=== PATIENT | female | born 1975 | race Caucasian/White ===

== ENCOUNTER 2017-03-09 17:15 | Emergency (ER) | payer OTHER ==
[2017-03-09 17:22] VITALS: BP 102/69; PULSE 73; TEMP 98.2; BMI 38.2
--- NOTE | 2017-03-09 17:55 | PDOC ---
History of Present Illness - General Chief Complaint: Headache Stated Complaint: FACIAL PAIN Time Seen by Provider: 03/09/17 17:30 History Source: Patient Exam Limitations: No Limitations - History of Present Illness Initial Comments: 03/09/17 17:37 Patient is a 41-year-old female, no significant medical history. Currently on no medication. Presents to the Emergency Room for evaluation of headache localized to the left side of the head. Denies ear pain, no throat pain, no trauma, no lesions to the head. Does have photophobia, nausea last evening, states it's the worst headache of her life. No neurosensory deficits. Steady gait. Past Medical History: Denies. Allergies: No known allergies Medications: None Family History: Non-contributory Social History: Denies smoking, alcohol use, or IVDU Review of Systems GENERAL/CONSTITUTIONAL: No fever or chills. No weakness. No weight change. HEAD, EYES, EARS, NOSE AND THROAT: No change in vision. No ear pain or discharge. No sore throat. CARDIOVASCULAR: No chest pain or shortness of breath. RESPIRATORY: No cough, wheezing, or hemoptysis. GASTROINTESTINAL: No nausea, vomiting, diarrhea or constipation. No rectal bleeding. GENITOURINARY: No dysuria, frequency, or change in urination. MUSCULOSKELETAL: No joint or muscle swelling or pain. No neck or back pain. SKIN AND BREASTS: No rash or easy bruising. NEUROLOGIC: No headache, vertigo, loss of consciousness, or loss of sensation. ENDOCRINE: No increased thirst. No abnormal weight change. HEMATOLOGIC/LYMPHATIC: No anemia, easy bleeding, or history of blood clots. ALLERGIC/IMMUNOLOGIC: No hives or skin allergy. No latex allergy. Physical Exam: GENERAL: The patient is awake, alert, and fully oriented, in no acute distress. HEAD: Normal with no signs of trauma. EYES: Pupils equal, round and reactive to light, extraocular movements intact, sclera anicteric, conjunctiva clear. ENT: Ears normal, nares patent, oropharynx clear without exudates. Moist mucous membranes. No uvula deviation NECK: Normal range of motion, supple without lymphadenopathy, JVD, or masses. LUNGS: Breath sounds equal, clear to auscultation bilaterally. No wheezes, and no crackles. HEART: Regular rate and rhythm, normal S1 and S2 without murmur, rub or gallop. ABDOMEN: Soft, nontender, normoactive bowel sounds. No guarding, no rebound. No masses. No bruising or abrasions MUSCULOSKELETAL: Normal range of motion, no edema. No clubbing or cyanosis. No cords, erythema, or tenderness. No CVA Tenderness with fist. NEUROLOGICAL: Cranial nerves II through XII grossly intact. Normal speech, normal gait. PSYCH: Normal mood, normal affect. SKIN: Warm, Dry, normal turgor, no rashes or lesions noted. Past History - Past Medical History Allergies/Adverse Reactions: Allergies Allergy/AdvReac Type Severity Reaction Status Date / Time No Known Allergies Allergy Verified 03/09/17 17:18 Home Medications: Ambulatory Orders Naproxen [Naprosyn -] 500 mg PO BID #14 tablet 03/09/17 Other medical history: migraines headache - Surgical History Abdominal Surgery: Yes - Immunization History Immunization Up to Date: Yes - Psycho/Social/Smoking Cessation Hx Anxiety: No Suicidal Ideation: No Smoking History: Never smoked Have you smoked in the past 12 months: No Information on smoking cessation initiated: No Hx Alcohol Use: No Drug/Substance Use Hx: No Substance Use Type: None *Physical Exam - Vital Signs Last Vital Signs Temp Pulse Resp BP Pulse Ox 98.2 F 73 18 102/69 100 03/09/17 17:19 03/09/17 17:19 03/09/17 17:19 03/09/17 17:19 03/09/17 17:19 Medical Decision Making - Medical Decision Making 03/09/17 17:58 A/P: Patient here for evaluation of left-sided headache states the worst headache of her life. Plan: Urine , Toradol 60 mg IM times one and head CT, will reevaluate 03/09/17 19:28 CT scan of the head is negative for acute intracranial pathology. Patient states relief of headache after Toradol DC patient home on Naprosyn, follow-up with neurology if headaches persist. *DC/Admit/Observation/Transfer Diagnosis at time of Disposition: Headache Qualifiers: Headache type: tension-type Headache chronicity pattern: acute headache Intractability: not intractable Qualified Code(s): G44.209 - Tension-type headache, unspecified, not intractable - Discharge Dispostion Disposition: HOME Condition at time of disposition: Good Admit: No - Prescriptions Prescriptions: Naproxen [Naprosyn -] 500 mg PO BID #14 tablet - Referrals Referrals: Symone Hanna [Primary Care Provider] - Jean Pierre Hough MD [Staff Physician] - - Patient Instructions Printed Discharge Instructions: Tension Headache (Alternative Therapy) Additional Instructions: Please follow up in the office of neurologist for evaluation if symptoms persist. Increase fluids. - Post Discharge Activity Work/School Note: Back to Work
[2017-03-09] MEDS ORDERED: KETOROLAC TROMETHAMINE 60 MG/2 ML VIAL IM ONE (17:56)
[2017-03-09] MEDS ORDERED: KETOROLAC TROMETHAMINE 60 MG/2 ML VIAL ONE (18:03)
== END 2017-03-09 19:51 | disposition home or self-care (01) ==
LOC: JERFT 17:15
PROC: 3E0233Z Introduction of Anti-inflammatory into Muscle, Percutaneous Approach (ICD-10-PCS; principal; 2017-03-09)
DX: G44.209 Tension-type headache, unspecified, not intractable (principal)
CPT/HCPCS: 70450-TC; 84703; 96372; 99281-25

== ENCOUNTER 2018-01-03 19:45 | Emergency (ER) | payer OTHER ==
[2018-01-03 19:57] VITALS: BP 129/76; PULSE 90; TEMP 98.2; BMI 36.6
[2018-01-03] MEDS ORDERED: SODIUM CHLORIDE 1,000 ML IV STA ×2 (20:06→22:21)
--- NOTE | 2018-01-03 20:33 | PDOC ---
History of Present Illness - General Chief Complaint: CVA/TIA Stated Complaint: NUMBNESS Time Seen by Provider: 01/03/18 19:55 - History of Present Illness Initial Comments: 01/03/18 20:32 Ms. Sandoval is a 42 yo female w/ pmh of migraines who presents for evaluation of 2 hour history of right arm and face tingling and numbness. Patient reports it started at her eye spread across the right side of her face. She most recently had a CT Head in february and sees a Neurologist for evaluation of her migraines. The patient denies chest pain, shortness of breath, headache and dizziness. Denies fever, chills, nausea, vomit, diarrhea and constipation. Denies dysuria, frequency, urgency and hematuria. Allergies: NKDA NIH Stroke Scale - Last Known Well Date/Time & Onset Date Last Known Well: 01/03/18 Time Last Known Well: 18:45 - Initial Evaluation Level of consciousness: Alert Ask patient the month and their age: Answers both correctly Ask patient to open & close eyes; make fist and let go: Obeys both correctly Best gaze (horizontal eye movement): Normal Visual field testing: No visual field loss Facial paresis (Show teeth/raise eyebrows/close eyes tight): Normal symmetrical movement Motor Function: Left Arm: Normal Motor Function: Right Arm: Normal (extends arm 90 (or 45) degrees for 10 seconds without drift Motor Function: Left Leg: Normal (extends leg 30 degrees for 5 seconds without drift) Motor Function: Right Leg: Normal (extends leg 30 degrees for 5 seconds without drift) Limb Ataxia: No ataxia Sensory(Use pinprick test arms,legs,trunk,face/side to side): Mild to moderate decrease in sensation Best language (Describe picture, name items, read sentences): No Aphasia Dysarthria (read several words): Normal articulation Extinction and Inattention: No abnormality - Total Score NIH Stroke Scale Score: 1 Past History - Past Medical History Allergies/Adverse Reactions: Allergies Allergy/AdvReac Type Severity Reaction Status Date / Time No Known Allergies Allergy Verified 05/25/17 19:41 Home Medications: Ambulatory Orders NK [No Known Home Medication] 05/25/17 COPD: No DVT: No Other medical history: obesity - Surgical History Abdominal Surgery: Yes - Immunization History Immunization Up to Date: Yes - Suicide/Smoking/Psychosocial Hx Smoking History: Never smoked Have you smoked in the past 12 months: No Information on smoking cessation initiated: No Hx Alcohol Use: No Drug/Substance Use Hx: No Substance Use Type: None Review of Systems - Review of Systems Comments:: 01/03/18 20:41 GENERAL/CONSTITUTIONAL: No fever or chills. No weakness. HEAD, EYES, EARS, NOSE AND THROAT: +Right sided facial tingling. No change in vision. No ear pain or discharge. No sore throat. CARDIOVASCULAR: No chest pain or shortness of breath RESPIRATORY: No cough, wheezing, or hemoptysis. GASTROINTESTINAL: No nausea, vomiting, diarrhea or constipation. GENITOURINARY: No dysuria, frequency, or change in urination. MUSCULOSKELETAL: +Right arm tingling. No joint or muscle swelling or pain. No neck or back pain. SKIN: No rash NEUROLOGIC: No headache, vertigo, loss of consciousness, or change in strength/ sensation. ENDOCRINE: No increased thirst. No abnormal weight change HEMATOLOGIC/LYMPHATIC: No anemia, easy bleeding, or history of blood clots. ALLERGIC/IMMUNOLOGIC: No hives or skin allergy. *Physical Exam - Vital Signs Last Vital Signs Temp Pulse Resp BP Pulse Ox 98.2 F 90 20 129/76 96 01/03/18 19:53 01/03/18 19:53 01/03/18 19:53 01/03/18 19:53 01/03/18 19:53 - Physical Exam Comments: 01/03/18 20:41 GENERAL: Awake, alert, and fully oriented, in no acute distress HEAD: No signs of trauma, normocephalic, atraumatic EYES: +Right eye injected and tearful at this time. PERRLA, EOMI ENT: Auricles normal inspection, hearing grossly normal, nares patent, oropharynx clear without exudates. Moist mucosa NECK: Normal ROM, supple, no lymphadenopathy, JVD, or masses LUNGS: No distress, speaks full sentences, clear to auscultation bilaterally HEART: Regular rate and rhythm, normal S1 and S2, no murmurs, rubs or gallops, peripheral pulses normal and equal bilaterally. ABDOMEN: Soft, nontender, normoactive bowel sounds. No guarding, no rebound. No masses EXTREMITIES: Normal inspection, Normal range of motion, no edema. No clubbing or cyanosis. NEUROLOGICAL: Cranial nerves II through XII grossly intact. Normal speech, normal gait, no focal sensorimotor deficits SKIN: Warm, Dry, normal turgor, no rashes or lesions noted. ED Treatment Course - LABORATORY CBC & Chemistry Diagram: 01/03/18 20:26 01/03/18 20:26 Medical Decision Making - Medical Decision Making 01/03/18 20:44 Ms. Sandoval is a 42 yo female w/ pmh of migraines who presents w/ symptoms concerning for acute migraine. Patient NIHSS 1, no concern for CVA at this time. Treatment started for evaluation of complex migraine w/ fluids, IV reglan , and labs as below. 01/03/18 21:53 Patient reporting improvement with above treatment. 01/03/18 22:34 Discussed patient w/ Neurology as symptoms have not fully resolved. Neurology recommended testing ESR with decadron 10 and valproic acid 500 as well as head CTA for further evaluation. Will comply. 01/03/18 23:54 Head CTA negative. Discharging to home. Patient will follow-up outpatient with Neurology. *DC/Admit/Observation/Transfer Diagnosis at time of Disposition: Migraine Qualifiers: Migraine type: unspecified Status migrainosus presence: without status migrainosus Intractability: not intractable Qualified Code(s): G43.909 - Migraine, unspecified, not intractable, without status migrainosus - Discharge Dispostion Disposition: HOME - Referrals Referrals: Symone Hanna [Primary Care Provider] - - Patient Instructions Printed Discharge Instructions: DI for Migraine Additional Instructions: Please follow-up with Neurology as discussed. Return to ER if any return of headache, fever, chills, altered mental status, or other concerning symptoms. - Post Discharge Activity
[2018-01-03] MEDS ORDERED: METOCLOPRAMIDE HCL INJECTION 10 MG/2 ML VIAL IVPB ONE (20:38)
[2018-01-03] MEDS ORDERED: METOCLOPRAMIDE HCL INJECTION 10 MG/2 ML VIAL ONE (20:47)
--- NOTE | 2018-01-03 20:50 | PDOC ---
Attending Attestation - Medical Decision Making 01/04/18 00:03 EXAM: BRAIN CTA FINDINGS: The right and left anterior, middle and posterior cerebral arteries are normal without clot, occlusion, high-grade stenosis or discrete aneurysm formation. The distal vertebrobasilar system is normal with a slightly dominant left vertebral artery. The distal right and left internal carotid arteries are normal. There are no areas of abnormally increased or decreased enhancement IMPRESSION: No evidence of vascular pathology in the brain. THIS DOCUMENT HAS BEEN ELECTRONICALLY SIGNED Matthew Horton MD Documentation prepared by Serene Osorio, acting as medical assistant ob gyn for Nidia Avendano MD. <Serene Osorio - Last Filed: 01/04/18 00:03> - Resident Resident Name: Atilio Corey - ED Attending Attestation I have performed the following: I have examined & evaluated the patient, The case was reviewed & discussed with the resident, I agree w/resident's findings & plan, Exceptions are as noted - HPI HPI: 01/03/18 20:48 42 yo female p/e rt sided facial "pins and needles" sensation -she has a history of migraines and is followed by [facility] -usually she gets photophobia and her pain is usually left sided - Physicial Exam PE: 01/03/18 20:50 42 yo female p/w complaint of rt sided facial numbness head ncat eyes rosaura eomi neck supple lungs cta b/l cvs [id number] abd nontender extremities no edema,no deformities skin warm and sry,no vescicles 01/03/18 22:27 - Medical Decision Making 01/03/18 22:54 Spoke with Neurology, Dr Thomas who requested pt receive Valproic acid,decadron and CTA of the head 01/04/18 00:33 CT of the head is negative I reviewed the CTA head and lab work results with a air sampling and monitoring and it became evident that the patient already has an appointment with Dr. Thomas this for history of numbness in her hands <Nidia Avendano - Last Filed: 01/04/18 00:35>
[2018-01-03 20:51] LABS: BASO % 0.6 % (0-2.0); EOS % 1.7 % (0-4.5); HEMATOCRIT 37.7 % (32.4-45.2); LYMPH % 27.1 % (8-40); MCH 27.6 pg (25.7-33.7); MCHC 34.4 g/dl (32.0-36.0); MEAN CELL VOLUME 80.3 fl (80-96); MEAN PLT VOLUME 8.3 fl (7.5-11.1); MONO % 8.6 % (3.8-10.2); PLATELET COUNT 242 K/MM3 (134-434); RDW 13.7 % (11.6-15.6); WHITE BLOOD COUNT 5.7 K/mm3 (4.0-10.0)
[2018-01-03 20:57] LABS: URINE APPEARANCE CLEAR; URINE BILIRUBIN NEGATIVE (<2.0 mg/dL); URINE COLOR LTYELLOW; URINE GLUCOSE (UA) NEGATIVE (NEGATIVE); URINE KETONE NEGATIVE (NEGATIVE); URINE LEUK ESTERASE NEGATIVE (NEGATIVE); URINE NITRITE NEGATIVE (NEGATIVE); URINE PROTEIN NEGATIVE (NEGATIVE)
[2018-01-03 20:59] LABS: HCG,QUALITATIVE URINE NEGATIVE
[2018-01-03 21:21] LABS: ALK PHOS 86 U/L (45-117); ANION GAP 9 (8-16); BILIRUBIN,TOTAL 0.5 mg/dL (0.2-1.0); BLOOD UREA NITROGEN 9 mg/dL (7-18); CALCIUM 9.1 mg/dL (8.5-10.1); CHLORIDE 105 mmol/L (98-107); CO2 26 mmol/L (21-32); GLUCOSE,RANDOM 100 mg/dL (74-106); POTASSIUM 4.1 mmol/L (3.5-5.1); SGOT/AST 27 U/L (15-37); SGPT/ALT 36 U/L (12-78); SODIUM 140 mmol/L (136-145); TOT PROT 7.3 g/dl (6.4-8.2)
[2018-01-03] MEDS ORDERED: ACETAMINOPHEN 1000 MG/100 ML VIAL (NON FORMULARY) IVPB ONE (21:58)
[2018-01-03] MEDS ORDERED: VALPROIC ACID 250 MG CAPSULE PO ONE (22:17)
[2018-01-03] MEDS ORDERED: ACETAMINOPHEN INJECTION 100 ML IVPB ONE (22:23)
[2018-01-03] MEDS ORDERED: DEXAMETHASONE 4 MG TABLET (FP) PO ONE (22:30)
[2018-01-03] MEDS ORDERED: DEXAMETHASONE SOD PHOSPHATE 10 MG/1 ML VIAL IVPUSH ONE (22:33)
[2018-01-03] MEDS ORDERED: DEXAMETHASONE SOD PHOSPHATE 10 MG/1 ML VIAL ONE (22:33)
[2018-01-03] MEDS ORDERED: DIVALPROEX SODIUM 500 MG TABLET E.C. ONE (22:33)
--- NOTE | 2018-01-04 13:59 | EKG ---
Test Reason : Blood Pressure : / mmHG Vent. Rate : 088 BPM Atrial Rate : 088 BPM P-R Int : 172 ms QRS Dur : 066 ms QT Int : 372 ms P-R-T Axes : 052 037 014 degrees QTc Int : 450 ms NORMAL SINUS RHYTHM POSSIBLE LEFT ATRIAL ENLARGEMENT LOW VOLTAGE QRS BORDERLINE ECG WHEN COMPARED WITH ECG OF 06-JUN-2015 13:51, QT HAS LENGTHENED Confirmed by KINDRA DEAL MD ([id number]) on 01/04/2018 1:58:53 PM Referred By: Confirmed By:KINDRA DEAL MD
== END 2018-01-04 00:44 | disposition home or self-care (01) ==
LOC: JER 19:45
PROC: 3E0337Z Introduction of Electrolytic and Water Balance Substance into Peripheral Vein, Percutaneous Approach (ICD-10-PCS; principal; 2018-01-03)
PROC: 3E033GC Introduction of Other Therapeutic Substance into Peripheral Vein, Percutaneous Approach (ICD-10-PCS; 2018-01-03)
PROC: 3E033GC Introduction of Other Therapeutic Substance into Peripheral Vein, Percutaneous Approach (ICD-10-PCS; 2018-01-03)
PROC: 3E033NZ Introduction of Analgesics, Hypnotics, Sedatives into Peripheral Vein, Percutaneous Approach (ICD-10-PCS; 2018-01-03)
DX: G43.909 Migraine, unspecified, not intractable, without status migrainosus (principal)
CPT/HCPCS: 36415; 70496-TC; 80053; 81003; 82550; 82553; 84484; 84703; 85025; 85651; 86618; 87086; 93005; 93010; 96361; 96374; 96375; 99282-25; J0131; J1100; J7030

== ENCOUNTER 2018-04-03 17:56 | Emergency (ER) | payer OTHER ==
[2018-04-03 18:05] VITALS: BP 141/83; PULSE 95; TEMP 98; BMI 39.6
--- NOTE | 2018-04-03 18:23 | PDOC ---
History of Present Illness - General Chief Complaint: Injury Stated Complaint: FALL, NECK AND SHOULDER PAIN Time Seen by Provider: 04/03/18 18:17 - History of Present Illness Initial Comments: 42-year-old female without comorbidities presents for evaluation of right shoulder pain after a fall 2 nights ago at home. She states she lost her balance trip fell onto her right shoulder. Since that time she's been having increasing pain in the right shoulder. 04/03/18 18:21 Past History - Past Medical History Allergies/Adverse Reactions: Allergies Allergy/AdvReac Type Severity Reaction Status Date / Time No Known Allergies Allergy Verified 04/03/18 18:05 Home Medications: Ambulatory Orders NK [No Known Home Medication] 05/25/17 COPD: No DVT: No - Surgical History Abdominal Surgery: Yes - Immunization History Immunization Up to Date: Yes - Suicide/Smoking/Psychosocial Hx Smoking History: Never smoked Have you smoked in the past 12 months: No Hx Alcohol Use: No Drug/Substance Use Hx: No Substance Use Type: None Review of Systems - Review of Systems Musculoskeletal: Yes: See HPI, Joint Pain All Other Systems: Reviewed and Negative *Physical Exam - Vital Signs Last Vital Signs Temp Pulse Resp BP Pulse Ox 98 F 95 H 18 141/83 99 04/03/18 18:02 04/03/18 18:02 04/03/18 18:02 04/03/18 18:02 04/03/18 18:02 - Physical Exam Comments: 04/03/18 18:22 Right shoulder skin color and temperature are normal range of motion is decreased she has mild tenderness over the proximal humerus she is unable to tolerate rotator cuff strength testing she has positive impingement maneuvers negative Spurling maneuver upper extremity compartments are soft and nontender she has no gross sensorimotor deficits she is neurovascularly intact. ED Treatment Course - RADIOLOGY Radiology Studies Ordered: Category Date Time Status SHOULDER-RIGHT [RAD] Stat Radiology 04/03/18 18:21 Ordered Medical Decision Making - Medical Decision Making X-rays of the right shoulder show no evidence of fracture trauma or distractive process this is a shoulder contusion with possibly an underlying rotator cuff injury I'll have her follow-up with orthopedic surgery. 04/03/18 18:57 *DC/Admit/Observation/Transfer Diagnosis at time of Disposition: Shoulder contusion - Discharge Dispostion Disposition: HOME Condition at time of disposition: Stable Decision to Admit order: No - Referrals Referrals: Lori Owens MD [Primary Care Provider] - Connor Wiseman MD [Staff Physician] - - Patient Instructions Printed Discharge Instructions: Contusion Additional Instructions: Return to the emergency room should symptoms worsen or go unresolved. May take Tylenol and Motrin for pain as directed. Follow-up with orthopedic surgery in 2- 3 days for further evaluation and treatment options. - Post Discharge Activity
== END 2018-04-03 19:30 | disposition home or self-care (01) ==
LOC: JERFT 17:56
DX: S40.011A Contusion of right shoulder, initial encounter (principal); W18.39XA Other fall on same level, initial encounter; Y93.89 Activity, other specified; Y92.038 Other place in apartment as the place of occurrence of the external cause; Y99.8 Other external cause status
CPT/HCPCS: 73030-TC-RT-FY; 99281-25

== ENCOUNTER 2019-02-07 14:11 | Emergency (ER) | payer OTHER ==
--- NOTE | 2019-02-07 14:24 | PDOC ---
Rapid Medical Evaluation Time Seen by Provider: 02/07/19 14:23 Medical Evaluation: Allergies Allergy/AdvReac Type Severity Reaction Status Date / Time No Known Allergies Allergy Verified 04/03/18 18:05 02/07/19 14:23 I have performed a brief in-person evaluation of this patient. The patient presents with a chief complaint of: diffuse chest pain x1 month Pertinent physical exam findings: no focal findings I have ordered the following: cardiac w/u The patient will proceed to the ED for further evaluation. Discharge Disposition - Diagnosis Chest pain - Referrals - Patient Instructions - Post Discharge Activity
[2019-02-07 14:31] VITALS: BP 124/68; PULSE 86; TEMP 98.5; BMI 39.1
[2019-02-07] MEDS ORDERED: IBUPROFEN 600 MG TABLET (FP) PO ONE ×2 (14:59→15:30)
--- NOTE | 2019-02-07 15:16 | PDOC ---
History of Present Illness - General Chief Complaint: Chest Pain Stated Complaint: CHEST PAIN Time Seen by Provider: 02/07/19 14:23 History Source: Patient Exam Limitations: No Limitations - History of Present Illness Initial Comments: 02/07/19 15:05 43-year-old female who presents to ED with chest site tightness/pressure to the midsternal region for the past month intermittently worsened with movement and deep breathing. Patient states went to see her primary care doctor was given medication under her tongue and then discharged home with the same. Patient states has taken the nitroglycerin with no improvement. Patient states has not seen a communications media professor as of yet. Patient denies palpitations, dizziness, or difficulty breathing. Timing/Duration: other (1 month) Severity: mild Associated Symptoms: reports: chest pain Past History - Travel Traveled outside of the country in the last 30 days: No Close contact w/someone who was outside of country & ill: No - Past Medical History Allergies/Adverse Reactions: Allergies Allergy/AdvReac Type Severity Reaction Status Date / Time No Known Allergies Allergy Verified 02/07/19 14:31 Home Medications: Ambulatory Orders NK [No Known Home Medication] 05/25/17 COPD: No DVT: No - Surgical History Abdominal Surgery: Yes - Immunization History Immunization Up to Date: Yes - Suicide/Smoking/Psychosocial Hx Smoking History: Never smoked Have you smoked in the past 12 months: No Information on smoking cessation initiated: No Hx Alcohol Use: No Drug/Substance Use Hx: No Substance Use Type: None Patient Lives Alone: No Lives with/in: spouse/SO Review of Systems - Review of Systems Able to Perform ROS?: Yes Constitutional: No: Symptoms Reported HEENTM: No: Symptoms Reported Respiratory: No: Symptoms reported Cardiac (ROS): Yes: Chest Pain ABD/GI: No: Symptoms Reported : No: Symptoms Reported Musculoskeletal: No: Symptoms Reported Integumentary: No: Symptoms Reported Neurological: No: Symptoms reported Hematologic/Lymphatic: No: Symptoms Reported *Physical Exam - Vital Signs Last Vital Signs Temp Pulse Resp BP Pulse Ox 98.5 F 86 18 124/68 98 02/07/19 14:29 02/07/19 14:29 02/07/19 14:29 02/07/19 14:29 02/07/19 14:29 - Physical Exam General Appearance: Yes: Nourished, Appropriately Dressed. No: Apparent Distress HEENT: positive: EOMI, GODFREY, TMs Normal, Pharynx Normal. negative: Pale Conjunctivae Neck: positive: Supple Respiratory/Chest: positive: Chest Tender (upper midsternal), Lungs Clear, Normal Breath Sounds. negative: Respiratory Distress, Accessory Muscle Use Cardiovascular: positive: Regular Rhythm, Regular Rate. negative: Murmur Gastrointestinal/Abdominal: positive: Soft. negative: Tenderness Integumentary: positive: Normal Color, Warm, Moist Neurologic: positive: Motor Strength 5/5 (ambulatory) Heart Score/ECG Review - ECG Intrepretation Rhythm: Regular Rhythm (Rate 72.) ED Treatment Course - LABORATORY CBC & Chemistry Diagram: 02/07/19 15:08 02/07/19 15:08 Medical Decision Making - Medical Decision Making 02/07/19 16:24 chief complaint: Intermittent upper bilateral chest pain for the past month. Patient states unable to open a communications media professor so came to the ER. Patient was seen by her PCP given nitroglycerin which she states has not alleviated her symptoms Exam: Reproducible upper chest pain near the first and second rib bilaterally medial of the midclavicular line Plan: Labs, urine, chest x-ray, EKG and Toradol ordered 02/07/19 17:25 Laboratory Tests 02/07/19 02/07/19 02/07/19 15:08 15:08 15:08 WBC 4.5 Hgb 12.6 Hct 35.8 Neutrophils % 61.7 PT with INR INR Sodium 141 Potassium 4.1 Chloride 108 H Carbon Dioxide 25 Anion Gap 7 L BUN 9.3 Est GFR (CKD-EPI)NonAf 69.43 Random Glucose 96 Calcium 9.0 Magnesium 2.2 Total Bilirubin 0.7 AST 22 ALT 29 Alkaline Phosphatase 85 Creatine Kinase 211 H Creatine Kinase Index 1.4 CK-MB (CK-2) 3.0 Troponin I < 0.02 Total Protein 7.3 Albumin 4.0 Urine Ketones Ur Leukocyte Esterase Urine WBC (Auto) Urine HCG, Qual 02/07/19 02/07/19 02/07/19 15:08 15:08 15:08 WBC Hgb Hct Neutrophils % PT with INR 12.20 INR 1.03 Sodium Potassium Chloride Carbon Dioxide Anion Gap BUN Est GFR (CKD-EPI)NonAf Random Glucose Calcium Magnesium Total Bilirubin AST ALT Alkaline Phosphatase Creatine Kinase Creatine Kinase Index CK-MB (CK-2) Troponin I Total Protein Albumin Urine Ketones Trace H Ur Leukocyte Esterase 1+ H Urine WBC (Auto) 6 Urine HCG, Qual Negative Exam negative for acute pathology. Patient states feeling better. Patient be discharged home with recommendations to take Motrin 600 mg as needed for discomfort and follow-up with referred communications media professor given to her by her PCP at [address] [place] [address]. *DC/Admit/Observation/Transfer Diagnosis at time of Disposition: Chest pain, musculoskeletal - Discharge Dispostion Disposition: HOME Condition at time of disposition: Improved - Referrals - Patient Instructions Printed Discharge Instructions: DI for Musculoskeletal Pain Additional Instructions: Please take Motrin 600 mg every 8 hours for discomfort. Follow-up with the communications media professor you were given by your PCP - Post Discharge Activity
[2019-02-07 16:05] LABS: BILIRUBIN,TOTAL 0.7 mg/dL (0.2-1); BLOOD UREA NITROGEN 9.3 mg/dL (7-18); MAGNESIUM 2.2 mg/dL (1.8-2.4); POTASSIUM 4.1 mmol/L (3.5-5.1); TOT PROT 7.3 g/dl (6.4-8.2)
[2019-02-07 16:13] LABS: BASO % 0.2 % (0-2.0); HEMATOCRIT 35.8 % (32.4-45.2); HEMOGLOBIN 12.6 GM/dL (10.7-15.3); INR 1.03 (0.83-1.09); LYMPH % 26.2 % (8-40); MCH 28.1 pg (25.7-33.7); MCHC 35.1 g/dl (32.0-36.0); MEAN PLT VOLUME 8.2 fl (7.5-11.1); MONO % 10.9 % (3.8-10.2); NEUT % 61.7 % (42.8-82.8); PLATELET COUNT 227 K/MM3 (134-434); PROTHROMBIN TIME (PATIENT) 12.2 SEC (9.7-13.0); RBC 4.48 M/mm3 (3.60-5.2); RDW 13.6 % (11.6-15.6); WHITE BLOOD COUNT 4.5 K/mm3 (4.0-10.0)
[2019-02-07 16:36] LABS: EPI CELLS 3.1 /HPF (0-5/HPF); HYALINE CASTS 1 /lpf (0-8); PH,URINE 5.5 (5.0-8.0); URINE APPEARANCE CLEAR; URINE BACTERIA 239.3 /hpf (NEGATIVE); URINE BILIRUBIN NEGATIVE (NEGATIVE); URINE COLOR YELLOW; URINE GLUCOSE (UA) NEGATIVE (NEGATIVE); URINE KETONE TRACE (NEGATIVE); URINE LEUK ESTERASE 1+ (NEGATIVE); URINE NITRITE NEGATIVE (NEGATIVE); URINE PROTEIN NEGATIVE (NEGATIVE); URINE RBC 1 /hpf (0-4); URINE WBC 6 /hpf (0-5)
--- NOTE | 2019-02-08 13:42 | EKG ---
Test Reason : Blood Pressure : / mmHG Vent. Rate : 093 BPM Atrial Rate : 093 BPM P-R Int : 152 ms QRS Dur : 062 ms QT Int : 344 ms P-R-T Axes : 057 047 029 degrees QTc Int : 427 ms NORMAL SINUS RHYTHM NORMAL ECG WHEN COMPARED WITH ECG OF 03-JAN-2018 20:49, NO SIGNIFICANT CHANGE WAS FOUND Confirmed by Moncho Chowdhury MD ([id number]) on 02/08/2019 1:41:34 PM Referred By: Confirmed By:Moncho Chowdhury MD
== END 2019-02-07 17:41 | disposition home or self-care (01) ==
LOC: JER 14:11
DX: R07.89 Other chest pain (principal)
CPT/HCPCS: 36415; 71046-TC-FY; 80053; 81003; 82550; 82553; 83735; 84484; 84703; 85025; 85610; 93005; 93010; 99282-25

== ENCOUNTER 2020-04-10 09:19 | Emergency (ER) | payer OTHER ==
[2020-04-10 09:36] VITALS: BP 110/68; PULSE 70; TEMP 98.6; BMI 38.9
[2020-04-10] MEDS ORDERED: IBUPROFEN 600 MG TABLET (FP) PO ONE ×2 (10:00→10:04)
[2020-04-10] MEDS ORDERED: CEPHALEXIN MONOHYDRATE 500 MG CAPSULE (UD) PO ONE (10:00)
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
[2020-04-10] MEDS ORDERED: CEPHALEXIN MONOHYDRATE 500 MG CAPSULE (UD) ONE (10:05)
--- NOTE | 2020-04-10 10:09 | PDOC ---
History of Present Illness - General Chief Complaint: Injury Stated Complaint: LT. FOOT SWELLING Time Seen by Provider: 04/10/20 09:41 History Source: Patient Exam Limitations: No Limitations - History of Present Illness Initial Comments: 04/10/20 10:03 Patient is a 44-year-old female who presents to the ED with complaint of left ankle and foot swelling 2 days ago. She states she went walking on Thursday and then noticed that her foot began to swell. She denies any fevers or chills. She has tried using ice, heat, IcyHot without any relief. She states the pain increases with walking. She denies any numbness or tingling. She denies any injury to the foot or ankle. The patient denies any past medical history or allergies to medications. Past History - Medical History Allergies/Adverse Reactions: Allergies Allergy/AdvReac Type Severity Reaction Status Date / Time No Known Allergies Allergy Verified 04/10/20 09:34 Home Medications: Ambulatory Orders Cephalexin [Keflex] 500 mg PO TID 7 Days #21 capsule 04/10/20 COPD: No DVT: No - Surgical History Abdominal Surgery: Yes - Reproductive History Is Patient Now?: No - Immunization History Immunization Up to Date: Yes - Psycho-Social/Smoking History Smoking History: Never smoked Have you smoked in the past 12 months: No - Substance Abuse Hx (Audit-C & DAST Scrn) How often the patient has a drink containing alcohol: Never Score: In Men: 4 or > Positive; In Women: 3 or > Positive: 0 Screen Result (Pos requires Nsg. Audit-10AR): Negative In the last yr the pt used illegal drug/Rx for NonMed reason: No Score: Yes response is considered Positive: 0 Screen Result (Positive result requires Nsg. DAST-10): Negative Review of Systems - Review of Systems Comments:: 04/10/20 10:04 - Review of Systems Able to Perform ROS?: Yes Constitutional: No: Fever, Chills, Loss of Appetite, Night Sweats, Weakness HEENTM: No: Eye Pain, Vision changes, Ear Pain, Throat Pain, Throat Swelling, Mouth Pain, Difficulty Swallowing Respiratory: No: Cough, Shortness of Breath, Wheezing, Sputum Production Cardiac (ROS): No: Chest Pain, Chest Tightness, Palpitations, Irregular Heart Beat, Edema ABD/GI: No: Nausea, Vomiting, Abdominal Pain, Diarrhea Musculoskeletal: No: Muscle Pain, Back Pain, Joint Pain, Muscle Weakness, Neck Pain; positive: Left foot and ankle swelling Integumentary: No: Lesions, Rash Neurological: No: Headache, Numbness, Tingling, Weakness, Speech Difficulties *Physical Exam - Vital Signs Last Vital Signs Temp Pulse Resp BP Pulse Ox 98.6 F 70 18 110/68 100 04/10/20 09:34 04/10/20 09:34 04/10/20 09:34 04/10/20 09:34 04/10/20 09:34 - Physical Exam 04/10/20 10:05 - Physical Exam General Appearance: Nourished, Appropriately Dressed, No Distress HEENT: EOMI, Normal Voice, Hearing Grossly Normal Neck: Supple, No Lymphadenopathy (R), No Lymphadenopathy (L), No Rigidity, No Decreased range of motion Respiratory/Chest: Lungs Clear, Normal Breath Sounds. No Respiratory Distress, No Accessory Muscle Use Cardiovascular: Regular Rhythm, Regular Rate, S1, S2 Musculoskeletal: Normal Inspection. No Decreased Range of Motion; left dorsal foot erythema appreciated with mild warmth to touch. Lateral ankle swelling with some anterior tenderness appreciated. No crepitus. DP and PT pulses 2+. Patient able to move all toes freely. Brisk capillary refill distally. Extremity: Normal Capillary Refill, Normal Inspection Integumentary: Normal Color, Dry. 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 Plan: -We will treat the patient for a left foot cellulitis, first dose of Keflex giv en in the ED -Left foot and ankle x-rays negative for acute pathology -We will discharge the patient with a prescription for Keflex and have her follow-up with orthopedics for further evaluation and treatment. She understands and agrees with this treatment plan and she is stable for discharge. Discharge - Discharge Information Problems reviewed: Yes Clinical Impression/Diagnosis: Cellulitis of left foot Condition: Stable Disposition: HOME - Additional Discharge Information Prescriptions: Cephalexin [Keflex] 500 mg PO TID 7 Days #21 capsule - Follow up/Referral Referrals: Lori Owens MD [Primary Care Provider] - 24 hours - Patient Discharge Instructions Patient Printed Discharge Instructions: DI for Cellulitis -- Adult Additional Instructions: Take the antibiotics as prescribed and complete the entire course. You were given your first dose in the emergency department today so take the next dose in 8 hours. Be sure to complete the entire course of antibiotics even if you are feeling better. Follow-up with your primary doctor within 1 to 2 days for repeat evaluation. Return to the emergency department for increased swelling, increased redness, increased pain, high fevers, shaking chills or any other worsening symptoms. - Post Discharge Activity Work/Back to School Note: Back to Work
== END 2020-04-10 10:14 | disposition home or self-care (01) ==
LOC: JERFT 09:19
DX: L03.116 Cellulitis of left lower limb (principal)
CPT/HCPCS: 73610-TC-LT-FY; 73630-TC-LT; 99283-25

== ENCOUNTER 2021-11-07 04:38 | Day surgery (SDC) | payer OTHER ==
[2021-11-06 09:48] VITALS: BMI 41.2
[2021-11-07 11:33] VITALS: BP 105/55; PULSE 70; TEMP 98
== END 2021-11-07 11:53 | disposition home or self-care (01) ==
LOC: JASU-ENDO 04:38
PROVIDERS: ATTEND Internal Medicine Gastroenterology
PROC: 0DJD8ZZ Inspection of Lower Intestinal Tract, Via Natural or Artificial Opening Endoscopic (ICD-10-PCS; principal; 2021-11-07 10:15)
DX: Z12.11 Encounter for screening for malignant neoplasm of colon (principal); K59.00 Constipation, unspecified; Z80.0 Family history of malignant neoplasm of digestive organs
CPT/HCPCS: 81025

== ENCOUNTER 2022-10-20 07:50 | Emergency (ER) | payer OTHER ==
[2022-10-20 08:11] VITALS: BP 119/79; RESP 20; TEMP 98.1; BMI 41.5
[2022-10-20] MEDS ORDERED: SODIUM CHLORIDE 1,000 ML IV STA (08:33)
[2022-10-20] MEDS ORDERED: FAMOTIDINE 20 MG/50 ML IVPB 20 MG/50 ML MG IVPB ONE ×2 (08:33→08:47)
[2022-10-20] MEDS ORDERED: MAG HYDROX/AL HYDROX/SIMETH 30 ML UNIT-DOSE CUP PO ONE (08:33)
[2022-10-20] MEDS ORDERED: MAG HYDROX/AL HYDROX/SIMETH 30 ML UNIT-DOSE CUP ONE (08:47)
[2022-10-20 09:35] LABS: BASO % 0.3 % (0-2.0); EOS % 0.9 % (0-4.5); HEMATOCRIT 37.5 % (32.4-45.2); HEMOGLOBIN 12.9 GM/dL (10.7-15.3); LYMPH % 21.8 % (8-40); MCH 27.7 pg (25.7-33.7); MCHC 34.4 g/dl (32.0-36.0); MEAN CELL VOLUME 80.6 fl (80-96); MEAN PLT VOLUME 7.6 fl (7.5-11.1); MONO % 10.7 % (3.8-10.2); NEUT % 66.3 % (42.8-82.8); PLATELET COUNT 224 10^3/uL (134-434); RBC 4.66 M/mm3 (3.60-5.2); RDW 14.3 % (11.6-15.6); WHITE BLOOD COUNT 4.8 K/mm3 (4.0-10.0)
[2022-10-20 09:51] LABS: CHLORIDE 106 mmol/L (98-107); SODIUM 139 mmol/L (136-145)
[2022-10-20 09:53] LABS: CALCIUM 9.1 mg/dL (8.5-10.1)
[2022-10-20 09:54] LABS: ALBUMIN 3.9 g/dl (3.4-5.0); ANION GAP 5 MMOL/L (8-16); BLOOD UREA NITROGEN 8.5 mg/dL (7-18); CO2 28 mmol/L (21-32); GLUCOSE,RANDOM 123 mg/dL (74-106); LIPASE 151 U/L (73-393)
[2022-10-20 09:57] LABS: CREATININE 0.6 mg/dL (0.55-1.3); SGPT/ALT 39 U/L (13-61)
[2022-10-20 09:58] LABS: BILIRUBIN,TOTAL 0.9 mg/dL (0.2-1); TOT PROT 7.3 g/dl (6.4-8.2)
[2022-10-20 09:59] LABS: ALK PHOS 83 U/L (45-117); SGOT/AST 22 U/L (15-37)
[2022-10-20 12:28] LABS: PH,URINE 5.5 (5.0-8.0); URINE APPEARANCE CLEAR; URINE BILIRUBIN NEGATIVE (NEGATIVE); URINE COLOR YELLOW; URINE GLUCOSE (UA) NEGATIVE (NEGATIVE); URINE KETONE NEGATIVE (NEGATIVE); URINE LEUK ESTERASE NEGATIVE (NEGATIVE); URINE NITRITE NEGATIVE (NEGATIVE); URINE PROTEIN NEGATIVE (NEGATIVE); URINE UROBILINOGEN 0.2 mg/dL (0.2-1.0)
[2022-10-20 16:31] VITALS: PULSE 82
== END 2022-10-20 16:32 | disposition home or self-care (01) ==
LOC: JER 07:50
PROC: 3E033GC Introduction of Other Therapeutic Substance into Peripheral Vein, Percutaneous Approach (ICD-10-PCS; principal; 2022-10-20)
PROC: 3E0337Z Introduction of Electrolytic and Water Balance Substance into Peripheral Vein, Percutaneous Approach (ICD-10-PCS; 2022-10-20)
DX: R10.11 Right upper quadrant pain (principal); R10.31 Right lower quadrant pain; R19.7 Diarrhea, unspecified; Z20.822 Contact with and (suspected) exposure to COVID-19
CPT/HCPCS: 0241U-QW; 36415; 74177-TC; 76705-TC; 80053; 81003; 83690; 84702; 85025; 87086; 93005; 93010; 99285-25; Q9967

== ENCOUNTER 2023-10-12 07:46 | Emergency (ER) | payer OTHER ==
[2023-10-12 07:59] VITALS: BP 141/79; PULSE 88; RESP 18; TEMP 98; BMI 41.5
[2023-10-12] MEDS ORDERED: KETOROLAC TROMETHAMINE 30 MG/1 ML VIAL ONE (08:25)
[2023-10-12] MEDS ORDERED: LIDOCAINE 4% PATCH TP ONE (08:25)
[2023-10-12] MEDS: KETOROLAC TROMETHAMINE 30 MG/1 ML VIAL IM ONE (08:36)
[2023-10-12] MEDS: LIDOCAINE 5% TOPICAL PATCH TP ONE (08:36)
[2023-10-12] MEDS ORDERED: ACETAMINOPHEN 325 MG TABLET (FP) ONE (10:24)
[2023-10-12] MEDS: ACETAMINOPHEN 500 MG TABLET (FP) PO ONE (10:25)
[2023-10-12] MEDS ORDERED: LIDOCAINE PATCH REMOVAL MC ONE (22:00)
== END 2023-10-12 10:38 | disposition home or self-care (01) ==
LOC: JER 07:46
PROC: 3E0233Z Introduction of Anti-inflammatory into Muscle, Percutaneous Approach (ICD-10-PCS; principal; 2023-10-12)
DX: M54.42 Lumbago with sciatica, left side (principal); X50.1XXA Overexertion from prolonged static or awkward postures, initial encounter
CPT/HCPCS: 72131-TC; 73562-TC-LT-FY; 84703; 99285-25

== ENCOUNTER 2023-11-21 01:01 | Emergency (ER) | payer OTHER ==
[2023-11-21 01:06] VITALS: RESP 18; TEMP 97; BMI 41.2
[2023-11-21 02:19] LABS: BASO % 0.3 % (0-2.0); EOS % 2.1 % (0-4.5); HEMATOCRIT 43.3 % (32.4-45.2); HEMOGLOBIN 14.9 GM/dL (10.7-15.3); LYMPH % 27.2 % (8-40); MCH 28.5 pg (25.7-33.7); MCHC 34.3 g/dl (32.0-36.0); MEAN CELL VOLUME 82.9 fl (80-96); MEAN PLT VOLUME 7.6 fl (7.5-11.1); MONO % 7.4 % (3.8-10.2); PLATELET COUNT 273 10^3/uL (134-434); RBC 5.22 M/mm3 (3.60-5.2); RDW 13.9 % (11.6-15.6); WHITE BLOOD COUNT 5.8 K/mm3 (4.0-10.0)
[2023-11-21] MEDS: SODIUM CHLORIDE 0.9% 500 ML INFUS.BAG IV ONE (02:35)
[2023-11-21 02:40] LABS: POTASSIUM 3.8 mmol/L (3.5-5.1)
[2023-11-21 02:43] LABS: ALBUMIN 4.3 g/dl (3.4-5.0); BLOOD UREA NITROGEN 14.6 mg/dL (7-18)
[2023-11-21 02:46] LABS: CREATININE 0.8 mg/dL (0.55-1.3)
[2023-11-21 02:48] LABS: BILIRUBIN,TOTAL 0.8 mg/dL (0.2-1); TOT PROT 7.8 g/dl (6.4-8.2)
[2023-11-21 04:11] VITALS: BP 136/78; PULSE 72
== END 2023-11-21 04:11 | disposition home or self-care (01) ==
LOC: JER 01:01
DX: R07.89 Other chest pain (principal)
CPT/HCPCS: 36415; 71045-TC-FY; 80053; 84484; 84703; 85025; 85379; 93005; 93010; 99285-25

== ENCOUNTER 2024-04-06 08:36 | Emergency (ER) | payer OTHER ==
[2024-04-06 08:48] VITALS: BP 104/70; PULSE 75; RESP 18; TEMP 98.7; BMI 41.1
[2024-04-06] MEDS ORDERED: LIDOCAINE 4% PATCH TP ONE (10:23)
[2024-04-06] MEDS ORDERED: KETOROLAC TROMETHAMINE 30 MG/1 ML VIAL ONE (10:24)
[2024-04-06] MEDS: KETOROLAC TROMETHAMINE 30 MG/1 ML VIAL IM ONE (10:36)
[2024-04-06] MEDS: LIDOCAINE 4% PATCH TP ONE (10:36)
[2024-04-06 12:51] LABS: HIV INTERPRETATION NEGATIVE (NEGATIVE)
[2024-04-06] MEDS ORDERED: LIDOCAINE PATCH REMOVAL MC ONE (22:00)
== END 2024-04-06 10:37 | disposition home or self-care (01) ==
LOC: JERFT 08:36
PROC: 3E0133Z Introduction of Anti-inflammatory into Subcutaneous Tissue, Percutaneous Approach (ICD-10-PCS; principal; 2024-04-06)
DX: M54.50 Low back pain, unspecified (principal); G89.29 Other chronic pain; X50.0XXA Overexertion from strenuous movement or load, initial encounter
CPT/HCPCS: 36415; 86803; 87389; 99284-25